=== PATIENT | male | born 1980 | race Asian ===

== ENCOUNTER 2016-07-21 21:04 | Emergency (ER) | payer OTHER ==
[2016-07-21 21:08] VITALS: BP 135/82; PULSE 85; O2SAT 95
--- NOTE | 2016-07-21 21:51 | ED.REPORT ---
HPI-Back Pain Under 40 Date of Service Jul 21, 2016 ED Provider: Dr. Menon Pt is a 36 year old male with a hx of back pain presenting to the ED complaining of back pain onset today while rolling a tire. He is unable to sit due to pain, and also reports muscle spasms and hip pain. Denies bladder or bowel incontinence or any other symptoms at this time. The pt originally injured his back on 07/13. He reports that today, he was rolling a tire and turned his head because someone called his name, and suddenly felt shooting pain down his back. His back pain is usually resolved by going to the chiropractor, but today it was not. He also reports muscle spasms when flexing his feet. Nursing Notes Stated Complaint: LOWER BACK PAIN Chief Complaint: Back Pain or Injury Nursing Notes Reviewed: Yes Allergies: Coded Allergies: No Known Allergies (Unverified , 07/21/16) Scheduled Famotidine (Pepcid) 20 Mg Tablet 20 MG PO BID Methocarbamol (Robaxin-750) 750 Mg Tablet 1-2 TAB PO QID Scheduled PRN Naproxen (Naprosyn) 500 Mg Tablet 500 MG PO BID PRN PRN For Pain General Time Seen by MD: 21:50 Chief Complaint Back pain Hx Obtained From: Patient Arrived By: Walk-in Sudden in Onset?: Yes Onset Occurred: 9 - 12 hours ago Symptom Duration: Since onset Caused by: Aggravated old injury Quality: Painful Severity: Current: Moderate Severity: Maximum: Severe Recent Healthcare: No recent doctor visit, No recent hospitalization Similar Sx Previous: Yes Past Medical History Past Medical History hx of back pain Past Surgical History denies Smoking History Never Smoker Social History Drug Use: Denies drug use Ambulatory Status Independent Review of Systems Male: Denies Incontinence Musculoskeletal: Reports: Back pain, Lumbar pain Neurologic: Denies: Focal weakness, Numbness Complete sys rev & neg: except as marked. Physical Exam Initial Vital Signs Vital Signs (First) Date Time Temp Pulse Resp B/P Pulse Ox O2 Delivery O2 Flow Rate FiO2 07/21/16 21:08 36.7 85 135/82 95 Room Air 07/21/16 22:30 16 Initial VS: Reviewed Head / Eyes: Atraumatic, Normocephalic, PERRL ENT: Mucous membranes moist, Conjunctiva normal, No scleral icterus Neck: Full range of motion Respiratory: No respiratory distress Abdomen / GI: No distention Skin: Warm, Dry, No cyanosis Psychiatric: Mood/affect normal, Behavior normal, Normal thought content General/Constitutional: Awake, Alert, No acute distress, Well appearing Back: Atraumatic, No midline vertebral tend Spasms and tenderness in the paraspinum. No scoliosis. Walking guardedly. Neurologic: Oriented X3, Speech NL, No motor deficits, No sensory deficits, CN II - XII intact, Reflexes equal bilat, Cerebellar NL, Memory NL, Gait NL Normal strength and sensation. Re-Eval/Medical Decision Med Decision/Clinical Course Healthy 36-year-old with prior back pain presents after a twisting "tweak" to his low back while rolling a tire. No indication for x-rays or advanced imaging as there is been no impact and he has been evaluated in the past. Home with Lexa Borden, and plan to continue with his chiropractor as before. No radiculopathy symptoms at this point. Given warnings on numbness weakness and incontinence to present promptly if these occur. Re-Evaluation/Progress : Time of Eval: 22:15 Patient Status: Condition improved Re-Evaluation/Progress Note: Discussed plan for discharge. Pt understands and agrees with plan. All pt questions addressed. Counseled Regarding: Diagnosis, Lab results, Need for follow-up, When/why to return to ED Discharge & Departure Impression: Primary Impression: Low back pain Chronicity: unspecified Back pain laterality: unspecified Sciatica presence : with sciatica presence unspecified Qualified Code: M54.5 - Low back pain Additional Impression: Spasm of lumbar paraspinous muscle Disposition: Home All VS Reviewed: Yes Condition: Improved Patient Instructions: Acute Low Back Pain (ED) Additional Instructions: No dangerous cause for your back pain is likely. This is a common ailment of creatures who walk upright. It generally responds to heat, rest, and time. It is not uncommon to have some discomfort trailing off over 2-3 weeks. Take the muscle relaxants and the pain medication as prescribed. Take Pepcid as long as you are on the Naprosyn, to avoid heartburn from the medicine. Apply heating pad for comfort, but avoid arrieta. Use a back roll whenever you sit to enforce an upright posture with the normal curve in your low back. Keep your chin down also to enforce that posture. Sit as little as ever you can. Return to the ER if you develop any numbness, weakness, incontinence, or worsening back pain. Follow-up with your doctor in the office. You may follow up with Dr. Stratton if you need local coverage. Chiropractic manipulation can be helpful for the low back and you should continue her visits while having acute pain. Referrals: [facility] (PCP) Jared Stratton MD Attestation Portions of this note were transcribed by Rosita Child. I, Dr. Menon personally performed the history, physical exam and medical decision-making; I reviewed and confirmed the accuracy of the information in the transcribed note. Signed by: Li Barnard, 07/21/2016 and 2316. copies to: Jared Stratton MD, Christopher W MD Jul 21, 2016 21:51 ROSITA CHILD Jul 21, 2016 22:01
[2016-07-21] MEDS ORDERED: Ketorolac 30 mg/mL 2 mL Inj IM ONE (22:05)
[2016-07-21] MEDS ORDERED: NAPR500T PO (22:10)
[2016-07-21] MEDS ORDERED: METH-313 PO (22:10)
[2016-07-21] MEDS ORDERED: FAMO20T PO (22:10)
[2016-07-21 22:30] VITALS: BP 140/87; PULSE 93; RESP 16; O2SAT 95
== END 2016-07-21 22:32 | disposition home or self-care (01) ==
LOC: SED 21:04
DX: M54.5 Low back pain (principal); M62.830 Muscle spasm of back; X50.1XXA Overexertion from prolonged static or awkward postures, initial encounter; Y93.89 Activity, other specified; Y92.89 Other specified places as the place of occurrence of the external cause; Y99.8 Other external cause status
CPT/HCPCS: 96372; 99283; J1885